=== PATIENT | female | born 1990 | race Caucasian/White ===

== ENCOUNTER 2018-07-31 10:16 | Inpatient (IN) | payer OTHER ==
[2018-07-31 10:54] VITALS: BMI 26.4
[2018-07-31] MEDS ORDERED: ePHEDrine/0.9% NaCl/PF SYRINGE 50 mg/10 ml ONE (11:11)
[2018-07-31] MEDS ORDERED: Lidocaine 1% (PF) 30 ML VIAL SC PRN (11:16)
[2018-07-31] MEDS ORDERED: Butorphanol Tartrate 1 MG/ML VIAL SLOW IVP PRN (11:16)
[2018-07-31] MEDS ORDERED: NS / Oxytocin 40 units/1000ml 1,000 ML IV PRN (11:16)
[2018-07-31] MEDS ORDERED: Meperidine HCl/PF 25 MG/ML VIAL IM/IV PRN (11:16)
[2018-07-31] MEDS ORDERED: Acetaminophen 500 MG TAB PO PRN (11:16)
[2018-07-31] MEDS ORDERED: Ondansetron PF 4 MG/2 ML Vial IVP PRN (11:16)
[2018-07-31] MEDS ORDERED: Promethazine HCl 25 MG/ML VIAL IM PRN (11:16)
[2018-07-31] MEDS: Lactated Ringer's 1,000 ML IV SCH ×2 (11:55→13:06)
[2018-07-31 12:10] LABS: Hemoglobin 12.2 g/dL (12.0-16.0); Mean Corpuscular HGB CONC 34.3 g/dL (32.0-36.0); Mean Corpuscular Volume 93.1 fL (78.0-98.0); Mean Platelet Volume 7.6 fL (7.4-10.4); Platelet Count 229 thou/uL (130-400); RBC Distribution Width 13.9 % (11.5-14.5); Red Blood Cell (RBC) Count 3.83 mill/uL (4.20-5.40); White Blood Cell (WBC) Count 8.4 thou/uL (4.8-10.8)
[2018-07-31] MEDS ORDERED: Fentanyl 4 mcg/Bup 0.1% Cadd 100 ML ONE (12:18)
[2018-07-31 12:41] LABS: Syphilis Antibody Nonreactive (Nonreactive); Syphilis Antibody Index 0.06 S/CO (<1.00 Non-Reactive)
[2018-07-31 12:42] LABS: Hep B Surf Ag Non-Reactive S/CO (NonReactive)
[2018-07-31] MEDS ORDERED: Acetaminophen 325 MG TAB PO PRN (12:50)
[2018-07-31] MEDS ORDERED: diphenhydrAMINE 50 MG/ML VIAL IVP PRN (12:50)
[2018-07-31] MEDS ORDERED: Eucerin (Mineral Oil/Petrolatum,White) 30 gm Jar TOP PRN (12:50)
[2018-07-31] MEDS ORDERED: ePHEDrine/0.9% NaCl/PF SYRINGE 50 mg/10 ml SLOW IVP PRN (12:50)
[2018-07-31] MEDS ORDERED: Naloxone HCl 0.4 mg/ml Vial IVP PRN ×2 (12:50)
[2018-07-31] MEDS ORDERED: Lactated Ringer's 500 ML IV PRN (12:50)
[2018-07-31] MEDS ORDERED: Communication Order-Pharmacy FS SCH (13:00)
[2018-07-31] MEDS ORDERED: Fentanyl 4 mcg/Bupivacaine 0.1% Cassette 100 ML EPIDURAL SCH (13:00)
[2018-07-31] MEDS ORDERED: Adacel (T-DAP) 0.5 ML SYRINGE IM ONE (16:48)
[2018-07-31] MEDS ORDERED: Benzocaine/Menthol 20-0.5% 60 ML CAN TOP PRN (16:48)
[2018-07-31] MEDS ORDERED: diphenhydrAMINE 25 MG CAP PO PRN (16:48)
[2018-07-31] MEDS ORDERED: Bisacodyl 10 MG SUPP PR PRN (16:48)
[2018-07-31] MEDS ORDERED: NS / Oxytocin 40 units/1000ml 1,000 ML IV SCH (16:48)
[2018-07-31] MEDS ORDERED: Lanolin Ointment 7 GM TUBE TOP PRN (16:48)
[2018-07-31] MEDS ORDERED: Milk Of Magnesia 30 ML UDCUP PO PRN (16:48)
[2018-07-31] MEDS: Ibuprofen 800 MG TAB PO SCH (17:08)
[2018-07-31] MEDS: Ferrous Sulfate 325 MG TAB PO SCH (21:06)
[2018-07-31] MEDS: Docusate Calcium (SURFAK) 240 MG CAP PO SCH (21:53)
[2018-07-31] MEDS: HYDROcodone/Acetaminophen 5/325 mg Tablet PO PRN (21:56)
[2018-08-01] MEDS: Ibuprofen 800 MG TAB PO SCH ×2 (01:21→14:36)
[2018-08-01] MEDS: HYDROcodone/Acetaminophen 5/325 mg Tablet PO PRN ×3 (05:04→14:37)
[2018-08-01] MEDS: Docusate Calcium (SURFAK) 240 MG CAP PO SCH (08:36)
[2018-08-01] MEDS: Ferrous Sulfate 325 MG TAB PO SCH ×2 (08:39→17:35)
[2018-08-01 20:55] VITALS: BP 110/69; TEMP 97.9
--- NOTE | 2018-08-02 06:27 | PDOC.PP ---
Post Progress Note Post Day #: 1 Subjective: Late entry: exam done 08/01/18 at 130pm: Pain controlled. No complaints. well. Wants to go home today PO intake tolerated: yes Flatus: yes Ambulation: yes Vital Signs (12 hours) Temp Pulse Resp BP Pulse Ox 08/01/18 20:00 97.9 F 83 20 110/69 96 Weight Weight 169 lb - Physical Examination General: NAD Cardiovascular: no m/r/g, RRR Respiratory: clear to auscultation bilaterally, non-labored breathing Abdominal: + bowel sounds, lochia, no distention, appropriately TTP Result Diagrams: 07/31/18 11:49 Additional Labs: Post Labs Blood Type A POSITIVE 07/31/18 11:49 Hep Bs Antigen Non-Reactive S/CO (NonReactive) 07/31/18 11:49 (1) Vaginal delivery Code(s): O80 - ENCOUNTER FOR FULL-TERM UNCOMPLICATED DELIVERY Status: Acute - Assessment/Plan Routine PP care D/C later today F/U in 6 weeks with me
== END 2018-08-01 20:40 | disposition home or self-care (01) | DRG 807 ==
LOC: L&D/OP 10:16 → L&D 11:16 → 3SW 18:15
PROVIDERS: ADMIT Family Medicine; ATTEND Family Medicine
PROC: 10E0XZZ Delivery of Products of Conception, External Approach (ICD-10-PCS; principal; 2018-07-31)
PROC: 10907ZC Drainage of Amniotic Fluid, Therapeutic from Products of Conception, Via Natural or Artificial Opening (ICD-10-PCS; 2018-07-31)
DX: O80 Encounter for full-term uncomplicated delivery (principal); Z37.0 Single live birth; Z3A.38 38 weeks gestation of pregnancy
CPT/HCPCS: 36415; 51702; 85027; 86780; 86850; 86900; 86901; 87340; 90715; 99285; J2405